=== PATIENT | female | born 1995 | race African-American/Black ===

== ENCOUNTER 2016-05-07 23:47 | Emergency (ER) | payer SELFPAY ==
[~2016-05-07] VITALS: Ht 167.6 cm; Wt 129.4 kg
[~2016-05-07 23:47] MED LIST: NAPR-576 PO
[2016-05-07 23:52] VITALS: BP 118/83; PULSE 101; RESP 18; TEMP 98.5; O2SAT 98
[2016-05-08] MEDS ORDERED: IBUP-232 PO (00:26)
[2016-05-08] MEDS ORDERED: AMOX500C PO (00:27)
--- NOTE | 2016-05-08 00:27 | PD ---
HPI Chief Complaint: Facial Pain or Swelling Time Seen by Provider: 00:19 Travel History International Travel<30 days: No Contact w/Intl Traveler<30days: No Traveled to known affect area: No History of Present Illness HPI The patient is a 20-year-old female that complains of dental pain around tooth # 32 as well as the adjacent wisdom tooth. This is been going on for 3 days. She has not called a dentist. She thinks she can feel some facial swelling now. She denies any fever. She does not have a history of heart murmur or diabetes. [facility] Past Medical History Immunizations Current: Yes Tetanus Vaccination: Unknown Influenza Vaccination: No ?: Not LMP: last week Past Surgical History Surgical History: No Previous Surgery Social History Alcohol Use: No Tobacco Use: No Substance Use: No Allergies-Medications (Allergen,Severity, Reaction): Coded Allergies: No Known Allergies (Verified , 03/30/15) Reported Meds & Prescriptions Reported Meds & Active Scripts Active No Active Prescriptions or Reported Medications Review of Systems Except as stated in HPI: all other systems reviewed are Neg Physical Exam Narrative GENERAL: Well-nourished, well-developed patient in slight apparent distress with her dental pain. Her vital signs show heart rate of 101 but are otherwise normal. SKIN: Warm and dry. HEAD: Normocephalic. EYES: No scleral icterus. No injection or drainage. NECK: Supple, trachea midline. No JVD or lymphadenopathy. CARDIOVASCULAR: Regular rate and rhythm without murmurs, gallops, or rubs. RESPIRATORY: Breath sounds equal bilaterally. No accessory muscle use. GASTROINTESTINAL: Abdomen soft, non-tender, nondistended. MUSCULOSKELETAL: No cyanosis, or edema. BACK: Nontender without obvious deformity. No CVA tenderness. DENTAL: No loose or chipped teeth. No malocclusion. There is tenderness around tooth #32 and there is tenderness over the adjacent wisdom tooth. There are no drainable abscess is noted. Data Data Last Documented VS Vital Signs Date Time Temp Pulse Resp B/P Pulse Ox O2 Delivery O2 Flow Rate FiO2 05/07/16 23:52 98.5 101 18 118/83 98 MDM Medical Decision Making Medical Screen Exam Complete: Yes Emergency Medical Condition: Yes Medical Record Reviewed: Yes Differential Diagnosis Dental abscessdrainable, dental infection, noncompliance to follow-up with dentist Narrative Course The patient does not have a drainable dental abscess but does have a dental infection. She has yet to call a dentist. Plan: The patient should follow-up with a dentist and is given amoxicillin 500 mg 3 times a day for 10 days and several refills. She is also given a prescription for Motrin 600 mg 3 times a day. Diagnosis Primary Impression: Dental infection Additional Instructions: You need to set up an appointment with a dentist. The antibiotic is one tablet 3 times a day for 10 days and I gave you several refills on it. Normally, the dentist likes you to be on antibiotics when they see you. Take the Motrin regularly 1 tablet 3 times a day and add Tylenol along with it. This normally takes care of all the pain without narcotic medication. Med/Other Pt SpecificInfo: Prescription(s) given Scripts Amoxicillin 500 Mg [id number] Mg PO TID 10 Days Ref 0 Prov:Darell Funez MD 05/08/16 Ibuprofen 600 Mg [id number] Mg PO TID #30 TAB Ref 0 Prov:Darell Funez MD 05/08/16 Disposition: 01 DISCHARGE HOME Condition: Stable Darell Funez MD May 08, 2016 00:27
[2016-05-08] MEDS ORDERED: KETOROLAC TROMETHAMINE 60 MG/2 ML (IM) VIAL IM ONE (00:30)
[2016-05-08] MEDS ORDERED: LIDOCAINE HCL 1% 50 ML VIAL IM ONE (00:30)
[2016-05-08 01:11] VITALS: RESP 18
== END 2016-05-08 01:14 | disposition home or self-care (01) ==
LOC: PHED 23:47
DX: K04.7 Periapical abscess without sinus (principal)
CPT/HCPCS: 96372; 99282; J0696; J1885

== ENCOUNTER 2016-05-10 11:34 | Emergency (ER) | payer SELFPAY ==
[~2016-05-10] VITALS: Ht 167.6 cm; Wt 130.0 kg
[~2016-05-10 11:34] MED LIST changes: +AMOX500C PO; +IBUP-232 PO; -NAPR-576 PO
[2016-05-10 11:35] VITALS: BP 152/83; PULSE 83; RESP 12; TEMP 98.3; O2SAT 98
== END 2016-05-10 13:35 | disposition left against medical advice (07) ==
LOC: NETRI 11:34
DX: R68.89 Other general symptoms and signs (principal)
CPT/HCPCS: 99281